=== PATIENT | female | born 1965 | race Caucasian/White ===

== ENCOUNTER → 2019-10-20 | Outpatient (CLI) | payer BC ==
--- NOTE | 2019-10-20 15:08 | 2DMMODE ---
[place] [address] 2 D/M-MODE ECHOCARDIOGRAM Name: COLEJAJA Herve Room: [facility]#: [id number] Admission: 10/20/19 Attend Phys: Sam Soliz, Discharge: Date of : 69 Date of Service: 10/20/19 1508 Report #: [id number] THIS REPORT FOR: //name// APPROVED REPORT Study performed: 10/20/2019 11:05:53 EXAM: Comprehensive 2D, Doppler, and color-flow Echocardiogram Patient Location: Out-Patient BSA: 1.92 HR: 62 bpm BP: 105/76 mmHg Other Information Study Quality: Good Indications Congestive Heart Failure 2D Dimensions IVSd: 10.79 (7-11mm) LVOT Diam: 20.76 (18-24mm) LVDd: 43.51 mm PWd: 9.77 (7-11mm) Ascending Ao: 27.35 (22-36mm) LVDs: 28.00 (25-40mm) Aortic Root: 27.63 mm Volumes Left Atrial Volume (Systole) LA ESV Index: 12.10 mL/m2 Aortic Valve AoV Peak Casper.: 1.14 m/s AO Peak Gr.: 5.22 mmHg LVOT Max P.47 mmHg AO Mean Gr.: 2.81 mmHg LVOT Mean P.45 mmHg LVOT Max V: 0.93 m/s AO V2 VTI: 26.76 cm LVOT Mean V: 0.54 m/s YO (VTI): 2.68 cm2 LVOT V1 VTI: 21.16 cm Mitral Valve E/A Ratio: 1.34 MV Decel. Time: 221.70 ms MV E Max Casper.: 0.85 m/s MV PHT: 64.29 ms MVA (PHT): 3.42 [place]2 [place] [address] 2 D/M-MODE ECHOCARDIOGRAM Name: JAJA GALVAN Room: [facility]#: [id number] Admission: 10/20/19 Attend Phys: Sam Soliz, Discharge: Date of : 69 Date of Service: 10/20/19 1508 Report #: [id number] TDI E/Lateral E': 7.08 E/Medial E': 6.54 Medial E' Casper.: 0.13 m/s Lateral E' Casper.: 0.12 m/s Pulmonary Valve PV Peak Casper.: 0.75 m/s PV Peak Gr.: 2.28 mmHg Tricuspid Valve RAP Estimate: 5.00 mmHg TR Peak Gr.: 16.40 mmHg RVSP: 21.40 mmHg PA Pressure: 21.40 mmHg Left Ventricle The left ventricle is normal size. There is normal LV segmental wall motion. There is normal left ventricular wall thickness. Left ventricular systolic function is normal. LVEF is 55-60%. The left ventricular diastolic function is normal. Right Ventricle The right ventricle is normal size. The right ventricular systolic function is normal. Atria The left atrium size is normal. The right atrium size is normal. Aortic Valve The aortic valve is normal in structure. No aortic regurgitation is present. There is no aortic valvular stenosis. Mitral Valve The mitral valve is normal in structure. There is no mitral valve regurgitation noted. No evidence of mitral valve stenosis. Tricuspid Valve The tricuspid valve is normal in structure. Mild tricuspid regurgitation. No pulmonary hypertension. Pulmonic Valve The pulmonary valve is normal in structure. There is no pulmonic valvular regurgitation. Great Vessels The aortic root is normal in size. IVC [place] [address] 2 D/M-MODE ECHOCARDIOGRAM Name: JAJA GALVAN Room: [facility]#: [id number] Admission: 10/20/19 Attend Phys: Sam Soliz, Discharge: Date of : 69 Date of Service: 10/20/19 1508 Report #: [id number] collapses >50% with inspiration. Pericardium There is no pericardial effusion. <Conclusion> The left ventricle is normal size. There is normal left ventricular wall thickness. Left ventricular systolic function is normal. LVEF is 55-60%. The left ventricular diastolic function is normal. Mild tricuspid regurgitation. No pulmonary hypertension. IVC is normal in size and collapses >50% with inspiration. <ELECTRONICALLY SIGNED> By: Obie Phoenix MD, FACC 10/20/19 1508 1508 1508 Obie Phoenix MD, FACC /INF
== END ==
LOC: M.ULTRA 09:54 → M.CRD 11:00 → M.MRI 11:30
DX: I36.1 Nonrheumatic tricuspid (valve) insufficiency (principal); E04.1 Nontoxic single thyroid nodule; E07.89 Other specified disorders of thyroid

== ENCOUNTER → 2019-10-22 | Outpatient (CLI) | payer BC | LOC: M.MRI 11:00 | DX: M50.022 Cervical disc disorder at C5-C6 level with myelopathy (principal); M43.8X4 Other specified deforming dorsopathies, thoracic region; M46.02 Spinal enthesopathy, cervical region; M50.222 Other cervical disc displacement at C5-C6 level ==

== ENCOUNTER → 2019-10-28 | Outpatient (CLI) | payer BC | LOC: EDUNIT# 10-09 15:23 → M.RAD 09:57 | DX: R13.12 Dysphagia, oropharyngeal phase (principal); E07.9 Disorder of thyroid, unspecified; Z79.899 Other long term (current) drug therapy ==

== ENCOUNTER → 2019-11-02 | Outpatient (CLI) | payer BC ==
--- NOTE | 2019-11-23 09:07 | PATH ---
[address] [address] PATHOLOGY RPT PROCEDURE Name: COLEJAJA RICK Room: [facility]#: [id number] Admission: 11/02/19 Date of : 69 Discharge: Report #: [id number] Path Case #: [id number] Note [facility] Accession Number: [id number] TESTS RESULT FLAG UNITS REF RANGE LAB Source: 01 RT THYROID DIAGNOSIS: 02 RIGHT THYROID NODULE, IMAGE-GUIDED FNA: [place] CATEGORY III: ATYPIA OF UNDETERMINED SIGNIFCIANCE. ATYPICAL FOLLICULAR CELLS AND HURTHELOID CELLS WITH BACKGROUND OF ABUNDANT LYMPHOCYTES. SEE COMMENT. THIS INTERPRETATION INCLUDES EVALUATION OF A CELL BLOCK. COMMENT: The specimen will be submitted for molecular/RNA analysis and will be the subject of an addendum report. (REINA/db; 11/03/2019) Addendum: 02 Special studies report received from [facility], [address] [place] [address], on case [id number], labeled with their number [id number], dated 11/19/2019. . RESULTS SUMMARY Nodule Cytopathology ThyGeNEXT ThyraMIR Right Thyroid FNA AUS/FLUS(B-III) Insufficient Insufficient . INTERPRETATION AND RISK ASSESSMENT Right Thyroid FNA Cytology Dx B-III ThyGeNEXT Insufficient ThyraMIR Insufficient See Comment . *Risk assessment is based on disease prevalence of associated cytology diagnosis, mutational changes, microRNA expression, clinical experience, submitted manuscript and associated outside sales executive/platform presentation "The Utility of Combined Mutations and microRNA Expression Profiling in Assessing Cancer Risk in Thyroid Nodules", RM Annual Meeting, August 2017 in addition to clinical validation(1)(See Test Result Interpretation section) . TEST RESULT INTERPRETATION Right Thyroid FNA . Insufficient for molecular analysis. . In this sample there was an insufficient amount of nucleic acid to perform ThyGeNEXT mutational analysis and ThyraMIR microRNA clinical team lead analysis according to laboratory requirement for specimen adequacy. The most likely cause is sampling variation in which [place] [address] PATHOLOGY RPT PROCEDURE Name: JAJA GALVANINE Room: [facility]#: [id number] Admission: 11/02/19 Date of : 69 Discharge: Report #: [id number] Path Case #: [id number] aspirated did not yield adequate or rental sales representative thyroid epithelial cell nucleic acid for molecular analysis. . . According to the cytology report, the corresponding cytology slide(s) has follicular cells in a background of numerous lymphocytes. The cellular composition of the sample submitted (proportion of the follicular cells in reference to other population) is very important in the molecular analysis. But if it is possible and if additional information is desired, we recommend the submission of a diagnostic cytology slide(s) bearing the most cellular follicular material which can be microdissected and both mutational analysis (ThyGeNEXT) microRNA classifer (ThyraMIR) can be attempted. . . REGULATORY The ThyGeNEXT Thyroid Oncogene Panel provides PCR-based enrichment from fine-needle aspiration biopsies of thyroid nodules and next-generation sequencing (NGS) DNA and RNA analysis. The DNA analysis interrogates 10 genes relevant to thyroid carcinoma, including BRAF, TERT, ALK, RET, PTEN, HRAS, KRAS, NRAS, GNAS, PIK3CA, and 38 RNA fusion transcripts including PAX8/PPARgamma, RET/PTC, and various fusion partners of ALK, RET, BRAF, NTRK, and THADA. Duplicate PCR enrichment was performed using custom oligonucleotide primers with analysis on a MiSeq platform ([employer]). The analytical sensitivity of this assay is at least 3% for mutant DNA and at least 5% of RNA translocations in a background of wild-type genomic DNA and RNA, respectively. The reporting range is at least 5% for DNA variants, with the exception that the reporting range for BRAF V600E mutation is at least 3%. For the ThyGeNEXT panel, the overall, clinical sensitivity for this analysis is 63% and the specificity is 84% in cases with indeterminant cytology. . The ThyraMIR Anitha Cash Posting Clerk is a microRNA (Anitha) based discriminator of benign versus malignant disease using mathematical algorithm of 10 specific microRNAs trained and validated using thyroid nodules with known outcome. For the needle aspirates in preservative solution, this assay requires a minimum of RNA equivalent to that for ThyGenX (1000 relative fluorescent units of housekeeping RNA genes). Discrimination can be affected by admixture with blood and normal RNA sources and has been shown to be operative within the range of admixture typically encountered in sampling of thyroid nodule disease. The combined testing platform of ThyGenX with ThyraMIR has a clinical sensitivity of 89% and specificity of 85% for cases with indeterminate cytology diagnosis. (The Journal of Clinical Endocrinology and Metabolism, Volume 100, Issue 7, 18 May 2015, Pages 0218-4747) Laboratory analytical validation of ThyGeNEXT confirmed 100% agreement (95% CI: 99.5 to 100%) for the 5 genes (BRAF, HRAS, KRAS, NRAS, PIK3CA) and 6 fusions (PAX8-PPARG and RET-PTC) interrogated by ThyGenX. Based on this comparison, the performance of ThyGeNEXT is expected to be similar to ThyGenX; however, ThyGeNEXT will provide [address] [address] PATHOLOGY RPT PROCEDURE Name: COLEJAJA CABRERAINE Room: [facility]#: [id number] Admission: 11/02/19 Date of : 69 Discharge: Report #: [id number] Path Case #: [id number] additional information on gene alterations strongly associated with aggressive forms of differentiated thyroid cancer and/or poor outcome. . Testing performed on material created for microscopic evaluation (cytology slide smears, cell block, or thin prep), depending on cellularity and extractable nuclei acid, may have similar or slightly lower test performance characteristics to that stated above. . . DISCLAIMER: This test was developed and its performance characteristics determined by [facility]. It has not been cleared or approved by the FDA. The laboratory is regulated under CLI as qualified to perform high-complexity testing and is used for clinical purposes. A negative result does not indicate a benign result. This test detects only the mutations listed above, which account for >80% of thyroid cancers. Other, rare mutations, that may be indicative of cancer may not be detected by this test. In addition, about 30% of thyroid cancers have no known genetic alterations and/or mutations. . Interpreted By Electronically verified by Jenn Barragan MD Pathologist Date: 13:13:08 EDT . A complete copy of the report is on file. . Professional and Technical services [place] [address]. . (CLW:amj 11/20/2019) . . AZJ/11/20/2019 Addendum Electronically Signed by Jackie Baker MD, Pathologist Signed out by: Wilfrid Rouse MD, Pathologist NPI- [id number] Performed by: Josee Crooks, Psychologist Social ([facility]) Gross description: 12 08 ML, AMI, CLEAR /LCS 11/03/2019 1517 Local FLAG LEGEND: L-Low Normal,H-High Normal,LL-Alert Low,HH-Alert High <-Panic Low,>-Panic High,A-Abnormal,[place] [address] PATHOLOGY RPT PROCEDURE Name: JAJA GALVAN Room: [facility] Moya#: [id number] Admission: 11/02/19 Date of : 69 Discharge: Report #: [id number] Path Case #: [id number] Performed at: 01 [facility] [address] [place] [address] Abhijit Riddle MD, 02 ON LICENSE OF [facility] , [place] [address] Wilfrid Rouse MD, Performed at: [address] [facility], [place], [place] [id number] MD Abhijit Riddle MD Phone: [phone]
== END | disposition home or self-care (01) ==
LOC: M.ULTRA 08:13
DX: E04.1 Nontoxic single thyroid nodule (principal); R89.6 Abnormal cytological findings in specimens from other organs, systems and tissues

== ENCOUNTER → 2021-12-05 | Outpatient (CLI) | payer BC | LOC: M.ULTRA 10:49 → M.RAD 10:49 → M.ULTRA 11:00 | PROVIDERS: ATTEND Internal Medicine | DX: Z12.31 Encounter for screening mammogram for malignant neoplasm of breast (principal); M85.812 Other specified disorders of bone density and structure, left shoulder; M79.89 Other specified soft tissue disorders; M79.669 Pain in unspecified lower leg ==